=== PATIENT | female | born 1955 | race Caucasian/White ===

== ENCOUNTER → 2018-09-06 | Outpatient (CLI) | payer OTHER ==
[~2018-09-06] MED LIST: IBU-8800 MG PO
[2018-09-06 15:18] LABS: BASO # 0.1 10*3/uL (0.0-0.1); BASO % 0.7 % (0.0-1.0); EOS # 0.3 10*3/uL (0.0-0.4); EOS % 3.3 % (1.0-4.0); HEMATOCRIT 35.8 % (37.0-47.0); HEMOGLOBIN 11.3 g/dl (12.0-16.0); LYMPH % 21.1 % (27.0-41.0); MEAN CELL VOLUME 97.8 fl (81.0-99.0); MEAN CORPUSCULAR HGB 30.9 pg (27.0-31.0); MEAN CORPUSCULAR HGB CONC 31.6 g/dl (33.0-37.0); MONO # 0.8 10*3/uL (0.1-1.0); MONO % 8.5 % (3.0-9.0); NEUT # 6.3 10*3/uL (2.3-7.9); NEUT % 66.1 % (47.0-73.0); PLATELET COUNT AUTOMATED 256 10*3/uL (130-400); RED BLOOD COUNT 3.66 10*6/uL (4.10-5.10); RED CELL DISTRI WIDTH 13.2 % (0-14.5); WHITE BLOOD COUNT 9.5 10*3/uL (4.8-10.8)
[2018-09-06 15:26] LABS: ALBUMIN 3.7 gm/dl (3.1-4.5); CREATININE 1.87 mg/dL (0.55-1.02); PHOSPHOROUS 3.5 mg/dL (2.5-4.9); POTASSIUM 5.2 mmol/L (3.5-5.1)
[2018-09-06 15:47] LABS: VITAMIN D, 25-HYDROXY 73.5 ng/mL (30-100)
== END | disposition home or self-care (01) ==
LOC: LAB 14:20
PROVIDERS: Internal Medicine Nephrology
DX: N18.3 Chronic kidney disease, stage 3 (moderate) (principal)

== ENCOUNTER 2018-12-18 01:42 | Emergency (ER) | payer OTHER ==
[~2018-12-18] VITALS: Ht 162.5 cm; Wt 140.6 kg
[2018-12-18 01:42] VITALS: BP 125/45
== END 2018-12-18 05:22 | disposition home or self-care (01) ==
LOC: ED 01:42
DX: S16.1XXA Strain of muscle, fascia and tendon at neck level, initial encounter (principal); S00.31XA Abrasion of nose, initial encounter; Z88.1 Allergy status to other antibiotic agents; Z91.041 Radiographic dye allergy status; Z88.0 Allergy status to penicillin; Z88.2 Allergy status to sulfonamides; Z91.018 Allergy to other foods; Z88.5 Allergy status to narcotic agent; Z88.6 Allergy status to analgesic agent; Z90.49 Acquired absence of other specified parts of digestive tract; W01.198A Fall on same level from slipping, tripping and stumbling with subsequent striking against other object, initial encounter; Y93.89 Activity, other specified; Y92.098 Other place in other non-institutional residence as the place of occurrence of the external cause; Y99.8 Other external cause status

== ENCOUNTER 2018-12-22 22:30 | Inpatient (IN) | payer OTHER ==
[~2018-12-22] VITALS: Ht 165.1 cm; Wt 136.8 kg
[2018-12-22 22:31] VITALS: BP 118/94
--- NOTE | 2018-12-22 22:48 | NUR ---
PT CLEANED AND GOWNED.PT HAS LARGE AREA OF ECCHYMOSIS NOTED TO POSTERIOR BILATERAL UPPER THIGH AREA.WOUND NOTED TO POSTERIOR RT UPPER THIGH.MULTIPLE AREAS OF REDDENED EXCORIATION TO ABDOMINAL FOLDS.
[2018-12-22 23:52] LABS: BASO # 0.1 10*3/uL (0.0-0.1); BASO % 0.4 % (0.0-1.0); EOS # 0.1 10*3/uL (0.0-0.4); EOS % 0.8 % (1.0-4.0); HEMATOCRIT 33.5 % (37.0-47.0); HEMOGLOBIN 10.6 g/dl (12.0-16.0); LYMPH % 7.3 % (27.0-41.0); MEAN CORPUSCULAR HGB CONC 31.6 g/dl (33.0-37.0); MEAN PLATELET VOLUME 10.6 fl (9.6-12.3); MONO # 1.4 10*3/uL (0.1-1.0); NEUT # 11.5 10*3/uL (2.3-7.9); NEUT % 81.1 % (47.0-73.0); PLATELET COUNT AUTOMATED 281 10*3/uL (130-400); RED BLOOD COUNT 3.42 10*6/uL (4.10-5.10); RED CELL DISTRI WIDTH 12.4 % (0-14.5); WHITE BLOOD COUNT 14.3 10*3/uL (4.8-10.8)
[2018-12-23 00:12] LABS: ALBUMIN 2.9 gm/dl (3.1-4.5); ALKALINE PHOSPHATASE 94 U/L (45-117); BUN 57 mg/dl (7-24); CHLORIDE 106 mmol/L (98-107); CREATININE 1.62 mg/dL (0.55-1.02); LIPASE 127 U/L (73-393); POTASSIUM 3.8 mmol/L (3.5-5.1); SGOT/AST 77 IU/L (3-35); SGPT/ALT 37 U/L (12-78); SODIUM 140 mmol/L (136-145); TOTAL PROTEIN 6.8 gm/dL (6.4-8.2)
[2018-12-23 00:19] LABS: CKMB 24.9 ng/ml (0.5-3.6); TROPONIN I < 0.015 ng/ml (<0.045)
--- NOTE | 2018-12-23 02:40 | NUR ---
A 63, admitted to 4E, under the services of NESHA Douglass DO with a diagnosis of RHABSOMOLYSIS, FALL AND GENERAIZED WEAKNESS. Chief complaint is GENERAL ALIZED WEAKNESS. Patient arrived via stretcher from ER. Monitor applied. Initial assessment completed. Vital signs taken and recorded. NESHA DOUGLASS DO notified of admission to the unit. Orders received. See assessment for past medical history, medications and allergies. Patient and/or family oriented to unit. [facility] visitation policy reviewed. Clothing/patient valuable form completed. JAZMIN GAUTAM
[2018-12-23 02:45] VITALS: BP 110/60
[2018-12-23] MEDS ORDERED: ATENOLOL50 M1 PO (03:40)
[2018-12-23] MEDS ORDERED: ATENOLOL25 MG PO (03:40)
[2018-12-23] MEDS ORDERED: AMLODIPINE BESY10 MG PO (03:42)
[2018-12-23] MEDS ORDERED: LISINOPRIL20 MG PO (03:43)
[2018-12-23] MEDS ORDERED: OMEPRAZOLE MAGN20 MG PO (03:44)
[2018-12-23] MEDS ORDERED: PRAVASTATIN SOD40 MG PO (03:44)
[2018-12-23] MEDS ORDERED: ALOGLIPTIN12.5 MG PO (03:45)
--- NOTE | 2018-12-23 03:45 | NUR ---
CALL PLACED TO DR. ANAND, ADVISED THAT MED REC WAS COMPLETE.
[2018-12-23] MEDS ORDERED: FUROSEMIDE80 MG PO (03:46)
[2018-12-23] MEDS ORDERED: OYSTER SHELL 51 EACH PO (03:46)
[2018-12-23] MEDS ORDERED: GOOD NEIGHBOR L10 MG PO (03:47)
[2018-12-23] MEDS ORDERED: NEURONTIN300 MG PO (03:48)
[2018-12-23] MEDS ORDERED: VITAMIN D50000 UNIT PO (03:50)
[2018-12-23] MEDS ORDERED: TOUJEO SOL300 UNIT/1 SQ (03:51)
[2018-12-23] MEDS ORDERED: HUMALOG100 UNIT/1 SQ (03:55)
[2018-12-23 08:00] VITALS: BP 142/58
--- NOTE | 2018-12-23 08:41 | NUR ---
LISA ANAYA [id number] Please refer to the physician's history and physical for past medical history, comorbid conditions, and allergies. Diagnosis: RHABDOMOLYSIS GENERALIZED WEAKNESS FALL Casper Score: 16,AT RISK WOUND DESCRIPTIONS: Wound Number: 1 AND 2 Location of the wound: RIGHT POSTERIOR THIGH Thickness: Full Size: 6.3cm X 10.5cM X 0.1cm Tunneling: NONE Undermining: NONE Sinus Tract: NONE Presence of Exudate: Serous sanguineous Amount: Light Color: Yellow Odor: Foul Periwound Skin Appearance: Erythema Wound edges: APPROXIMATED Pain (associated with wound): TENDER TO TOUCH How does patient state this happened? PATIENT STATES THESE AREAS HAVE BEEN GOING ON FOR "MONTHS." If wound is on legs/feet or hands, capillary refill time, pulses, color temp, sensation: CAP REFILL < 3 SECONDS. Wound Number: 3 AND 4 Location of the wound: LEFT POSTERIOR THIGH Thickness: Full Size: 4.5cm X 3.5cm X 0.1cm Tunneling: NONE Undermining: NONE Sinus Tract: NONE Presence of Exudate: Serous sanguineous Amount: Light Color: Yellow, Red Odor: Foul Periwound Skin Appearance: Erythema Wound edges: APPROXIMATED Pain (associated with wound): TENDER TO TOUCH How does patient state this happened? PATIENT STATES THESE AREAS HAVE BEEN GOING ON FOR "MONTHS." If wound is on legs/feet or hands, capillary refill time, pulses, color temp, sensation: CAP REFILL < 3 SECONDS. Wound Number: 5 Location of the wound: GLUTEAL CLEFT Thickness: Full Size: 27cm X 10.5cM X 0.1cm Tunneling: NONE Undermining: NONE Sinus Tract: NONE Presence of Exudate: Serous sanguineous Amount: Light Color: Yellow, Red Odor: Foul Periwound Skin Appearance: Erythema Wound edges: APPROXIMATED Pain (associated with wound): TENDER TO TOUCH How does patient state this happened? PATIENT STATES THESE AREAS HAVE BEEN GOING ON FOR "MONTHS." If wound is on legs/feet or hands, capillary refill time, pulses, color temp, sensation: CAP REFILL < 3 SECONDS. Wound Number: 6 Location of the wound: LEFT HIP/LATERAL ABD FOLD Thickness: Full Size: 12cm X 7cM X 0.1cm Tunneling: NONE Undermining: NONE Sinus Tract: NONE Presence of Exudate: Serous sanguineous Amount: Light Color: Yellow, Red Odor: Foul Periwound Skin Appearance: Erythema Wound edges: APPROXIMATED Pain (associated with wound): TENDER TO TOUCH How does patient state this happened? PATIENT STATES THESE AREAS HAVE BEEN GOING ON FOR "MONTHS." If wound is on legs/feet or hands, capillary refill time, pulses, color temp, sensation: CAP REFILL < 3 SECONDS. Wound Number: 7 Location of the wound: ENTIRE ABD FOLD Thickness: Full Size: 31cm X 9cm X 0.1cm Tunneling: NONE Undermining: NONE Sinus Tract: NONE Presence of Exudate: Serous sanguineous Amount: Light Color: Yellow, Red Odor: Foul Periwound Skin Appearance: Erythema Wound edges: APPROXIMATED Pain (associated with wound): TENDER TO TOUCH How does patient state this happened? PATIENT STATES THESE AREAS HAVE BEEN GOING ON FOR "MONTHS." If wound is on legs/feet or hands, capillary refill time, pulses, color temp, sensation: CAP REFILL < 3 SECONDS. Wound Number: 8 Location of the wound: LEFT GROIN Thickness: Full Size: 11cm X 0.2cM X 0.1cm Tunneling: NONE Undermining: NONE Sinus Tract: NONE Presence of Exudate: Serous sanguineous Amount: Light Color: Yellow, Red Odor: Foul Periwound Skin Appearance: Erythema Wound edges: APPROXIMATED Pain (associated with wound): TENDER TO TOUCH How does patient state this happened? PATIENT STATES THESE AREAS HAVE BEEN GOING ON FOR "MONTHS." If wound is on legs/feet or hands, capillary refill time, pulses, color temp, sensation: CAP REFILL < 3 SECONDS. Wound Number: 9 Location of the wound: RIGHT GROIN Thickness: Full Size: 15cm X 12cm X 0.1cm Tunneling: NONE Undermining: NONE Sinus Tract: NONE Presence of Exudate: Serous sanguineous Amount: Light Color: Yellow, Red Odor: Foul Periwound Skin Appearance: Erythema Wound edges: APPROXIMATED Pain (associated with wound): TENDER TO TOUCH How does patient state this happened? PATIENT STATES THESE AREAS HAVE BEEN GOING ON FOR "MONTHS." If wound is on legs/feet or hands, capillary refill time, pulses, color temp, sensation: CAP REFILL < 3 SECONDS. Wound Number: 10 Location of the wound: RIGHT LABIAL FOLD Thickness: Full Size: 0.8cm X 1.5cM X 0.1cm Tunneling: NONE Undermining: NONE Sinus Tract: NONE Presence of Exudate: Serous sanguineous Amount: Light Color: Yellow, Red Odor: Foul Periwound Skin Appearance: Erythema Wound edges: APPROXIMATED Pain (associated with wound): TENDER TO TOUCH How does patient state this happened? PATIENT STATES THESE AREAS HAVE BEEN GOING ON FOR "MONTHS." If wound is on legs/feet or hands, capillary refill time, pulses, color temp, sensation: CAP REFILL < 3 SECONDS. Wound Number: 11 Location of the wound: LEFT LABIAL FOLD Thickness: Full Size: 0.4cm X 1cm X 0.1cm Tunneling: NONE Undermining: NONE Sinus Tract: NONE Presence of Exudate: Serous sanguineous Amount: Light Color: Yellow, Red Odor: Foul Periwound Skin Appearance: Erythema Wound edges: APPROXIMATED Pain (associated with wound): TENDER TO TOUCH How does patient state this happened? PATIENT STATES THESE AREAS HAVE BEEN GOING ON FOR "MONTHS." If wound is on legs/feet or hands, capillary refill time, pulses, color temp, sensation: CAP REFILL < 3 SECONDS. Wound Number: 12 Location of the wound: RIGHT SIDE OF NOSE Thickness: Full Size: 1.4cm X 0.8cm X 0.1cm Tunneling: NONE Undermining: NONE Sinus Tract: NONE Presence of Exudate: Serous sanguineous Amount: Light Color: Yellow, Red Odor: Foul Periwound Skin Appearance: Erythema Wound edges: APPROXIMATED Pain (associated with wound): TENDER TO TOUCH How does patient state this happened? PATIENT STATES THESE AREAS HAVE BEEN GOING ON FOR "MONTHS." If wound is on legs/feet or hands, capillary refill time, pulses, color temp, sensation: CAP REFILL < 3 SECONDS. Surface the patient is resting on: Position Pro SKIN PREVENTION RECOMMENDATION: 1. Pressure redistribution support surface as appropriate 2. Elevate heels 3. Remove boots/TEDS every shift and reapply 4. Head of bed 30 degrees as tolerated 5. Assess nutrition and hydration 6. Manage moisture 7. Avoid the use of containment devices while in bed 8. Use absorptive products on surfaces limit layers of linens on bed 9. Turn and reposition every 1-2 hours in bed and every 1 hour in chair as tolerated 10. Weight shifts every 15 minutes while up in chair 11. Offloading with pillows or device to keep heels elevated off bed 12. Monitor skin at least every shift 13. Inspect under medical devices twice a day WOUND TREATMENT RECOMMENDATIONS: CONSULT SURGERY FOR POSSIBLE DEBRIDEMENT OF LEFT AND RIGHT POSTERIOR THIGHS. FULL THICKNESS GUIDELINE TO LEFT AND RIGHT POSTEROIR THIGHS AND GLUTEAL CLEFT: CLEANSE WITH NSS APPLY SUREPREP AROUND THE WOUND ALLOW TO DRY APPLY THERAHONEY AND COVER WITH OPTIFOAM GENTLE. NYSTATIN POWDER TO LEFT AND RIGHT GROIN AND LABIA AND ABD FOLDS EVERY EIGHT HOURS. ANTIBIOTIC OINTMENT TO RIGHT SIDE OF NOSE AND LEAVE OPEN TO AIR.
--- NOTE | 2018-12-23 09:00 | NUR ---
Aquarist in to talk to patient. Patient states lives at home with alone. There are none steps in the home. Physician: terri maurer Pharmacy: [facility] Home health services: none Patient's level of ADLs: MODERATE ASSIST Patient has working utilities: all working DME: walker, cane, scooter and wheelchair Follow-up physician's appointment after d/c: will be made by hospitalist nurse director upon discharge Does patient want to access PORTAL?: o Discharge plan discussed with patient, she states she lives at home alone, she states she has been becoming weaker and had a fall at home and was unable to get up, she has a cane and walker but lately has been primarily using her wheelchair, discussed with her a short term custodial stay for rehab prior to returning home. she was inagreement with this, given choice of area facilities she asked that case management/landscape architect and planner check and see which facilities would be able to accept her and she will pick from those, landscape architect and planner will contact area facilities, case management will follow. JUAN BHAT
--- NOTE | 2018-12-23 09:36 | NUR ---
PHYSICAL THERAPY Nursing screen received and chart reviewed. Physical therapy referral received. Thank you. Paulette Rainey,PT,DPT
--- NOTE | 2018-12-23 09:59 | NUR ---
Dr. Walker notified of wound care recommendations.
[2018-12-23 12:00] VITALS: BP 112/60
--- NOTE | 2018-12-23 13:39 | NUR ---
Occupational therapy orders received and OT eval completed in full on floor four. Patient precautions include fall risk, ww use, pain in lower back and right shoulder, fear of falling. Per OT eval and POC, OT recommends SNF. Patient would benefit from continued OT treatment to maximize independence in ADLs and transfers. Patient complexity is moderate, [id number]. Thank you for the referral. Alicia Colin, OTR/L
--- NOTE | 2018-12-23 13:39 | NUR ---
PHYSICAL THERAPY Physical therapy evaluation complete, 4E. Moderate complexity PT evaluation ([id number]) per chart review and evaluation. PT to progress bed mobility, transfers, and gait per POC. Recommend SNF at discharge. Thank you. Paulette Rainey,PT,DPT
--- NOTE | 2018-12-23 15:15 | NUR ---
NOTIFIED OF CONSULT. NO NEW ORDERS RECEIVED. HE WILL BE IN TO SEE THE PT IN THE AM.
--- NOTE | 2018-12-23 17:50 | NUR ---
PER DR DIAMOND ONLY GIVE 1 TAB OF 325 MG OF THE TYLENOL ORDERED SINCE I HAD JUST GIVEN 650 MG SHORTLY BEFORE.
--- NOTE | 2018-12-23 18:20 | NUR ---
A 63, admitted to , under the services of NESHA Douglass DO with a diagnosis of COPD EXACERBATION. Chief complaint is SOB. Patient arrived via stretcher from ER. Monitor applied. Initial assessment completed. Vital signs taken and recorded. NESHA DOUGLASS DO notified of admission to the unit. Orders received. See assessment for past medical history, medications and allergies. Patient and/or family oriented to unit. [facility] visitation policy reviewed. Clothing/patient valuable form completed. RONDA DALEY
[2018-12-23 20:00] VITALS: BP 117/44; BP 118/48; BP 118/52
--- NOTE | 2018-12-23 20:00 | NUR ---
SLEEPING, AWAKENS EASILY. RESPIRATIONS EASY. LUNGS DIMINISHED. PULSE OX 92% RA. TUBI-TRACK LABORER AND HEEL PROTECTORS PLACED. IV FLUIDS INFUSING PER ORDER. CALL LIGHT WITHIN REACH. NO VOICED COMPLAINTS
--- NOTE | 2018-12-23 23:50 | NUR ---
24 HR chart check completed.
[2018-12-24] VITALS: BP 114/38
--- NOTE | 2018-12-24 | NUR ---
SLEEPING. RESPIRATIONS EASY. VSS. IV FLUIDS MAINTAINED
--- NOTE | 2018-12-24 03:24 | NUR ---
Wound Care Recommendations: Wheelchair cushion when oob.
--- NOTE | 2018-12-24 04:36 | NUR ---
Upon discharge recommend patient to follow up for wound care in outpatient setting continue current wound care orders at discharging facility.
--- NOTE | 2018-12-24 05:30 | NUR ---
MEDICATED WITH TYLENOL PER PRN ORDER FOR COMPLAINTS OF NECK PAIN RATING A 5, PATIENT DESCRIBES SORE. CALL LIGHT WITHIN REACH. WILL MONITOR FOR EFFECTIVENESS
--- NOTE | 2018-12-24 07:00 | NUR ---
EARLIER MEDS APPEAR EFFECTIVE. SLEEPING. RESPIRATIONS EASY. IV FLUIDS MAINTAINED. CALL LIGHT WITHIN REACH
[2018-12-24 07:23] LABS: BASO # 0.1 10*3/uL (0.0-0.1); BASO % 0.8 % (0.0-1.0); EOS # 0.3 10*3/uL (0.0-0.4); EOS % 3.5 % (1.0-4.0); HEMATOCRIT 30.6 % (37.0-47.0); HEMOGLOBIN 9.4 g/dl (12.0-16.0); LYMPH # 1.7 10*3/uL (1.3-4.4); LYMPH % 18.4 % (27.0-41.0); MEAN CORPUSCULAR HGB 30.7 pg (27.0-31.0); MEAN CORPUSCULAR HGB CONC 30.7 g/dl (33.0-37.0); MEAN PLATELET VOLUME 10.1 fl (9.6-12.3); MONO # 1.1 10*3/uL (0.1-1.0); MONO % 12.7 % (3.0-9.0); NEUT # 5.7 10*3/uL (2.3-7.9); NEUT % 64.2 % (47.0-73.0); PLATELET COUNT AUTOMATED 244 10*3/uL (130-400); RED BLOOD COUNT 3.06 10*6/uL (4.10-5.10); RED CELL DISTRI WIDTH 12.8 % (0-14.5)
--- NOTE | 2018-12-24 07:27 | NUR ---
Patient agreeable to [facility], contacted facility and faxed referral, asked to start precert. waiting on auth.
[2018-12-24 08:00] VITALS: BP 130/78
[2018-12-24 08:01] LABS: CREATININE 1.38 mg/dL (0.55-1.02); PHOSPHOROUS 2.5 mg/dL (2.5-4.9)
[2018-12-24 08:07] LABS: FREE T4 1.35 ng/dl (0.76-1.46); THYROID STIM HORMONE (HS) 0.976 uIU/ml (0.358-4.75)
--- NOTE | 2018-12-24 08:30 | NUR ---
OT NOTE Pt was seen this A.M. 1:1 for 20 minute OT session. Upon arrival pt was supine in bed. Pt identified by name and and had complaints of "being sore all over." Pt transferred supine to sit EOB with modA X 2 and use of bed rails for UE support. Upon inital rise pt had complaints of feeling lightheaded. Educated pt on visual fixation and after aprox 60 seconds pt reported that it had gone away. Multiple sit to stand trasnfers were completed from bed level with maxA x 2 and use of w/w for UE support. Challenged pt's static standing tolerance needed for increased I in self care tasks and functional transfers and pt was able to tolerate aprox 10 secnds at a time before sitting due to fatigue and reports of "BLE weakness." Pt then transferred back into bed sit to supine with maxA X 2. There she was left with call light in hand, tray table in place, and bed alarm activated for safety. Continue with POC as able. JAMIN Gonzalez/Darrion
--- NOTE | 2018-12-24 08:31 | NUR ---
PHYSICAL THERAPY Patient presented to therapy with report of soreness in buttocks area due to ulcers that are being currently treated. Patient was identified by name and . Patient gives informed consent for treatment. Patient performed supine to sitting at EOB transfer with MOD X 2. Patient sat on EOB unassisted with report of lite-headedness. Patient sat oN eob FOR 10 MINUTES TOTAL. Patient performed sit to stand transfer with MAX A X 2. Patient stood at Walker for 3 seperate times 10 seconds for the first two attempts and 15 seconds for the 3rd attempt. Patient stood at Walker with MIN A X 2. Patient performed side-stepping up to head of bed with CGA X 2. Patient transferred to supine in bed with MAX A X 2. Patient was left in supine in bed with head of bed elevated, call light within reach, and bed alarm activated. Patient was 1:1 with this PAINT DEPARTMENT SUPERVISOR for 20 minutes total. NEENA LIRA PAINT DEPARTMENT SUPERVISOR
[2018-12-24 08:38] LABS: VITAMIN D, 25-HYDROXY 62.9 ng/mL (30-100)
--- NOTE | 2018-12-24 09:58 | NUR ---
Dr. Walker notified of wound care recommendations.
[2018-12-24 12:00] VITALS: BP 104/65
[2018-12-24 16:00] VITALS: BP 108/40
[2018-12-24 20:00] VITALS: BP 128/41
--- NOTE | 2018-12-24 20:00 | NUR ---
REMAINS IN RECLINER WITH NO DISTRESS NOTED. RESPIRATIONS EASY. LUNGS DIMINISHED. PULSE OX 97% RA. TUBI-RN ONCOLOGY IN PLACE. CALL LIGHT WITHIN REACH. NO VOICED COMPLAINTS
--- NOTE | 2018-12-24 20:14 | NUR ---
24 HR chart check completed.
--- NOTE | 2018-12-24 22:00 | NUR ---
ATTEMPTED TO ASSIST PATIENT TO BSC. PATIENT HESITANT TO USE WALKER STATING "I DON'T TRUST IT." PATIENT ENCOURAGED TO USE WALKER AND ASSIST X 2. PATIENT UNABLE TO TOLERATE. AGAIN ATTEMPTED AND PATIENT ABLE TO STAND USING WALKER WITH ASSIST X 2 WHILE ANOTHER STAFF MEMBER MOVED THE RECLINER AND PLACED BSC. PATIENT TOILETED AND ASSISTED TO BED. PATIENT C/O PAIN TO RIGHT SHOULDER RATING A 9, MEDICATED WITH TYLENOL PER PRN ORDER. CALL LIGHT WITHIN REACH. WILL MONITOR
[2018-12-25] VITALS: BP 141/53
--- NOTE | 2018-12-25 | NUR ---
meds appeara effective. sleeping. respirations easy. vss. call light within reach. bed alarm maintained for safety
[2018-12-25 06:12] LABS: BASO # 0.1 10*3/uL (0.0-0.1); BASO % 0.8 % (0.0-1.0); EOS # 0.4 10*3/uL (0.0-0.4); EOS % 4.1 % (1.0-4.0); HEMATOCRIT 30.4 % (37.0-47.0); HEMOGLOBIN 9.3 g/dl (12.0-16.0); LYMPH # 2.1 10*3/uL (1.3-4.4); LYMPH % 24.7 % (27.0-41.0); MEAN CELL VOLUME 98.4 fl (81.0-99.0); MEAN CORPUSCULAR HGB 30.1 pg (27.0-31.0); MEAN CORPUSCULAR HGB CONC 30.6 g/dl (33.0-37.0); MEAN PLATELET VOLUME 10.5 fl (9.6-12.3); MONO # 1.1 10*3/uL (0.1-1.0); MONO % 12.5 % (3.0-9.0); NEUT # 4.9 10*3/uL (2.3-7.9); NEUT % 57.4 % (47.0-73.0); PLATELET COUNT AUTOMATED 278 10*3/uL (130-400); RED BLOOD COUNT 3.09 10*6/uL (4.10-5.10); RED CELL DISTRI WIDTH 12.8 % (0-14.5); WHITE BLOOD COUNT 8.5 10*3/uL (4.8-10.8)
[2018-12-25 06:21] LABS: ALBUMIN 2.4 gm/dl (3.1-4.5); CREATININE 1.29 mg/dL (0.55-1.02); PHOSPHOROUS 2.3 mg/dL (2.5-4.9); POTASSIUM 4.3 mmol/L (3.5-5.1)
--- NOTE | 2018-12-25 06:27 | NUR ---
MEDICATED WITH TYLENOL PER PRN ORDER FOR COMPLAINTS OF RIGHT SHOULDER PAIN RATING A 7. CALL LIGHT WITHIN REACH. WILL MONITOR FOR EFFECTIVENESS
[2018-12-25 08:00] VITALS: BP 122/57
--- NOTE | 2018-12-25 08:50 | NUR ---
PHYSICAL THERAPY Patient seen this am 1:1 for therapy visit and was resting supine in bed upon therapist arrival. Patient identified by name / and reports 4/10 R shoulder pain at rest. Patient presented with increased B LE edema and c/o's of B upper hamstring pressure ulcer discomfort. Patient transfers supine to sit EOB MOD A and tolerating a minute or so static sit to catch her breath. Patient completed sit to stand, COMMUNICATIONS EQUIPMENT INSTALLER/MOD and transfers to [facility] by taking 3-4 steps COMMUNICATIONS EQUIPMENT INSTALLER/MOD x 2. Patient demonstrated upright "slouched" posture secondary to increased B knee flexion contracture and returned to supine in bed with increased fatigue MAX A x 2. Patient reported increased R shoulder pain as well, 6/10 and remained in bed with call light, tray table, telephone and bed alarm for safety. Will continue per POC as tolerated, total treatment time 14 minutes. Vicente Harvey, EDITOR DICTIONARY
--- NOTE | 2018-12-25 09:00 | NUR ---
OT NOTE Pt was seen this A.M. 1:1 for 25 minute OT session. Upon arrival pt was supine in bed. Pt identified by name and and had complaints of "4/10 R shoulder pain." Pt transferred supine to sit EOB with modA X 1 and use of bed rail for UE support. Upon inital rise pt had complaints of "mild dizziness", educated pt on visual fixation technique and after aprox 15 seconds pt stated "it is done, I feel better." Pt completed sit to stand from bed level with modA X 2 SUPERVISOR LABORATORY ANIMAL FACILITY, challenged pt's static standing tolerance needed for increased I in self care tasks and functional transfers. Pt was able to tolerate aprox 25 seconds at a time before sitting due to fatigue. Pt then completed sit to stand followed by stand pivot from EOB <> bedside commode with modA x 2 SUPERVISOR LABORATORY ANIMAL FACILITY. Clothing management completed with maxA and toilet hygiene completed with SBA while seated. Pt then transferred back into bed sit to supine with maxA x 2. Throughout entire session pt reported that she felt "anxious and nervous before doing anything new." Educated pt on relaxation techniques which pt had fair carry over. Extra time given throughout session due to slow rate of performance and frequent rest breaks required. Pt was left supine in bed with call light in hand, tray table in place, and bed alarm activated for safety. Continue with POC as indicated. JAMIN Gonzalez/Darrion
--- NOTE | 2018-12-25 11:22 | NUR ---
patient has received auth for [facility], patient can go today if medically stable for discharge.
[2018-12-25] MEDS ORDERED: Humalog SQ (11:26)
--- NOTE | 2018-12-25 11:42 | NUR ---
PATIENT TO RECEIVE FLU VACCINE PRIOR TO DISCHARGE.
--- NOTE | 2018-12-25 11:47 | NUR ---
Patient is discharged to [facility], transportation scheduled for 2PM with [facility]. NH, nursing/tree warden notified. Patient stating she will notify her son.
[2018-12-25 12:00] VITALS: BP 135/57
--- NOTE | 2018-12-25 12:00 | NUR ---
DISCHARGE PHOTOS OBTAINED PER POLICY.
--- NOTE | 2018-12-25 12:10 | NUR ---
DISCAHRGE PHOTOS OF WOUNDS TAKEN AT THIS TIME. DRSG CHANGES COMPLETED PER ORDERS. PATIENT TOLERATED WELL. CALL LIGHT LEFT WITHIN REACH.
--- NOTE | 2018-12-25 13:27 | NUR ---
FLU VACCINE GIVEN PER POLICY. PT RECEIVED VACCINE STATEMENT.
--- NOTE | 2018-12-25 14:02 | NUR ---
AMBULANCE HERE TO TRANSPORT PATIENT TO PENITENTIARY.
--- NOTE | 2018-12-25 14:15 | NUR ---
PATIENT TRANSPORTED TO [facility]. BELONGINGS WITH PATIENT. REPORT GIVEN TO NURSE AT GA.
--- NOTE | 2018-12-26 07:33 | NUR ---
PHYSICAL THERAPY CO-SIGN I approve of the Physical Therapy notes written above. ALIYAH MANNING PT,DPT
--- NOTE | 2018-12-27 07:38 | NUR ---
OT CO-SIGN I APPROVE OF THE NOTES WRITTEN ABOVE. THANK YOU. FELICITAS RHOADES, OTR/L
== END 2018-12-25 14:15 | disposition other institution (70) | DRG 564 ==
LOC: ED 22:30 → EDHOLD 12-23 01:23 → 4E 12-23 01:23
PROVIDERS: Internal Medicine; Physician Assistant; Student in an Organized Health Care Education/Training Program; ADMIT Internal Medicine
DX: T79.6XXA Traumatic ischemia of muscle, initial encounter (principal); E43 Unspecified severe protein-calorie malnutrition; R65.10 Systemic inflammatory response syndrome (SIRS) of non-infectious origin without acute organ dysfunction; Z68.43 Body mass index [BMI] 50.0-59.9, adult; N18.3 Chronic kidney disease, stage 3 (moderate); I87.2 Venous insufficiency (chronic) (peripheral); E11.65 Type 2 diabetes mellitus with hyperglycemia; E83.41 Hypermagnesemia; R74.0 Nonspecific elevation of levels of transaminase and lactic acid dehydrogenase [LDH]; K21.9 Gastro-esophageal reflux disease without esophagitis; M19.90 Unspecified osteoarthritis, unspecified site; E78.5 Hyperlipidemia, unspecified; I12.9 Hypertensive chronic kidney disease with stage 1 through stage 4 chronic kidney disease, or unspecified chronic kidney disease; E11.40 Type 2 diabetes mellitus with diabetic neuropathy, unspecified; D64.9 Anemia, unspecified; J45.909 Unspecified asthma, uncomplicated; E11.22 Type 2 diabetes mellitus with diabetic chronic kidney disease; W18.30XA Fall on same level, unspecified, initial encounter; Y93.89 Activity, other specified; Y92.098 Other place in other non-institutional residence as the place of occurrence of the external cause; Y99.8 Other external cause status; Z79.4 Long term (current) use of insulin; Z88.1 Allergy status to other antibiotic agents; Z88.6 Allergy status to analgesic agent; Z91.041 Radiographic dye allergy status; Z88.5 Allergy status to narcotic agent; Z88.0 Allergy status to penicillin; Z88.2 Allergy status to sulfonamides; Z91.09 Other allergy status, other than to drugs and biological substances; Z90.49 Acquired absence of other specified parts of digestive tract; Z82.49 Family history of ischemic heart disease and other diseases of the circulatory system; Z82.5 Family history of asthma and other chronic lower respiratory diseases; Z80.1 Family history of malignant neoplasm of trachea, bronchus and lung; Z79.899 Other long term (current) drug therapy

== ENCOUNTER → 2020-01-14 | Outpatient (CLI) | payer OTHER ==
[~2020-01-14] MED LIST changes: +ALOGLIPTIN12.5 MG PO; +AMLODIPINE BESY10 MG PO; +ATENOLOL25 MG PO; +ATENOLOL50 M1 PO; +FUROSEMIDE80 MG PO; +GOOD NEIGHBOR L10 MG PO; +HUMALOG100 UNIT/1 SQ; +Humalog SQ; +LISINOPRIL20 MG PO; +NEURONTIN300 MG PO; +OMEPRAZOLE MAGN20 MG PO; +OYSTER SHELL 51 EACH PO; +PRAVASTATIN SOD40 MG PO; +TOUJEO SOL300 UNIT/1 SQ; +VITAMIN D50000 UNIT PO
== END | disposition home or self-care (01) ==
LOC: RAD 01-09 14:00
PROVIDERS: ATTEND Nurse Practitioner Primary Care
DX: Z78.0 Asymptomatic menopausal state (principal)

== ENCOUNTER → 2020-07-29 | Outpatient (CLI) | payer OTHER ==
[2020-07-29 13:32] LABS: BILIRUBIN Negative (Negative); BLOOD Negative (Negative); CLARITY Cloudy (Clear); COLOR Yellow (Yellow); GLUCOSE Negative (Negative); KETONE Negative (Negative); LEUKO ESTERASE 3+ (Negative); NITRITE Negative (Negative); SPECIFIC GRAVITY 1.015 (1.001-1.030); UROBILINOGEN 0.2 E.U./dl (0.0-1.0)
[2020-07-29 14:02] LABS: ALBUMIN 3.6 gm/dl (3.1-4.5); ALKALINE PHOSPHATASE 81 U/L (45-117); BILIRUBIN, DIRECT < 0.1 mg/dL (0.0-0.2); BUN 60 mg/dl (7-24); CHLORIDE 110 mmol/L (98-107); CHOLESTEROL 182 mg/dL (<200); CREATININE 1.68 mg/dL (0.55-1.02); FREE T4 0.81 ng/dl (0.76-1.46); HDL CHOLESTEROL 40 mg/dl (40-60); LDL CHOLESTEROL 98 mg/dL (9-159); POTASSIUM 4.5 mmol/L (3.5-5.1); SGOT/AST 8 IU/L (3-35); SGPT/ALT 28 U/L (12-78); SODIUM 140 mmol/L (136-145); TOTAL PROTEIN 7.6 gm/dL (6.4-8.2); TRIGLYCERIDES 219 mg/dl (<150); VLDL CHOLESTEROL 44 mg/dL (6-40)
[2020-07-29 14:07] LABS: THYROID STIM HORMONE (HS) 0.718 uIU/ml (0.358-4.75)
[2020-07-29 14:17] LABS: BACTERIA 3+; EPITHELIAL CELLS 41-50; WBC 51-100 wbc/hpf (0-5)
== END | disposition home or self-care (01) ==
LOC: LAB 12:59
PROVIDERS: ATTEND Internal Medicine
DX: E11.65 Type 2 diabetes mellitus with hyperglycemia (principal); E78.5 Hyperlipidemia, unspecified; E55.9 Vitamin D deficiency, unspecified; E04.9 Nontoxic goiter, unspecified

== ENCOUNTER → 2020-12-09 | Outpatient (CLI) | payer OTHER ==
[2020-12-09 09:20] LABS: BILIRUBIN Negative (Negative); BLOOD Negative (Negative); CLARITY Clear (Clear); COLOR Yellow (Yellow); GLUCOSE Negative (Negative); KETONE Negative (Negative); LEUKO ESTERASE 2+ (Negative); NITRITE Negative (Negative); SPECIFIC GRAVITY 1.015 (1.001-1.030); UROBILINOGEN 0.2 E.U./dl (0.0-1.0)
[2020-12-09 09:30] LABS: BACTERIA 1+
[2020-12-09 09:49] LABS: ALBUMIN 3.5 gm/dl (3.1-4.5); ALKALINE PHOSPHATASE 90 U/L (45-117); BUN 60 mg/dl (7-24); CHLORIDE 111 mmol/L (98-107); CHOLESTEROL 117 mg/dL (<200); LDL CHOLESTEROL 45 mg/dL (9-159); POTASSIUM 4.5 mmol/L (3.5-5.1); SGOT/AST 11 IU/L (3-35); SGPT/ALT 28 U/L (12-78); SODIUM 139 mmol/L (136-145); TOTAL PROTEIN 7.9 gm/dL (6.4-8.2); TRIGLYCERIDES 176 mg/dl (<150); URIC ACID 7.7 mg/dL (2.6-6.0)
== END | disposition home or self-care (01) ==
LOC: LAB 08:49
PROVIDERS: ATTEND Internal Medicine
DX: E55.9 Vitamin D deficiency, unspecified (principal); M10.9 Gout, unspecified; E11.65 Type 2 diabetes mellitus with hyperglycemia; E78.5 Hyperlipidemia, unspecified; E04.9 Nontoxic goiter, unspecified

== ENCOUNTER → 2021-08-17 | Outpatient (CLI) | payer OTHER ==
[2021-08-17 12:05] LABS: BILIRUBIN Negative (Negative); BLOOD Negative (Negative); CLARITY Cloudy (Clear); COLOR Yellow (Yellow); GLUCOSE Negative (Negative); KETONE Negative (Negative); LEUKO ESTERASE 3+ (Negative); NITRITE Negative (Negative); SPECIFIC GRAVITY 1.015 (1.001-1.030); UROBILINOGEN 0.2 E.U./dl (0.0-1.0)
[2021-08-17 12:20] LABS: BUN 73 mg/dl (7-24); CHLORIDE 111 mmol/L (98-107); CHOLESTEROL 129 mg/dL (<200); CREATININE 2.15 mg/dL (0.55-1.02); SGOT/AST 11 IU/L (3-35); SGPT/ALT 28 U/L (12-78); SODIUM 137 mmol/L (136-145); TRIGLYCERIDES 202 mg/dl (<150)
[2021-08-17 12:25] LABS: ALKALINE PHOSPHATASE 101 U/L (45-117); FREE T4 0.76 ng/dl (0.76-1.46); LDL CHOLESTEROL 52 mg/dL (9-159); TOTAL PROTEIN 7.4 gm/dL (6.4-8.2)
[2021-08-17 12:26] LABS: BACTERIA 2+; WBC TNTC wbc/hpf (0-5)
== END | disposition home or self-care (01) ==
LOC: LAB 11:24
PROVIDERS: ATTEND Internal Medicine
DX: E11.65 Type 2 diabetes mellitus with hyperglycemia (principal); E04.9 Nontoxic goiter, unspecified; E78.5 Hyperlipidemia, unspecified; E55.9 Vitamin D deficiency, unspecified